=== PATIENT | female | born 1980 ===

== ENCOUNTER 2017-09-03 03:41 | Inpatient (IN) | payer OTHER ==
[~2017-09-03] VITALS: Ht 160 cm; Wt 68.5 kg
[2017-09-03] MEDS ORDERED: PRENATAL TABLE1 EAC1 PO (04:33)
[2017-09-03] MEDS ORDERED: IRON18 MG PO (04:34)
[2017-09-03] MEDS ORDERED: LOVENOX30 MG/0.3 SUBCUTANEO (04:35)
== END 2017-09-06 15:31 | DRG 766 ==
LOC: OB/GYN 03:41 → LDR 03:41 → O/R 15:29 → OB/GYN 15:46
PROVIDERS: Specialist
PROC: 4A1HXCZ Monitoring of Products of Conception, Cardiac Rate, External Approach (ICD-10-PCS; 2017-09-03)
PROC: 10D00Z1 Extraction of Products of Conception, Low, Open Approach (ICD-10-PCS; principal; 2017-09-03 13:00)
DX: O62.0 Primary inadequate contractions (principal); Z37.0 Single live birth; Z3A.39 39 weeks gestation of pregnancy